=== PATIENT | female | born 1955 | race Caucasian/White ===

== ENCOUNTER → 2016-07-16 | Outpatient (CLI) | payer BC | END | disposition home or self-care (01) | LOC: RAD.S 08:37 | DX: C34.01 Malignant neoplasm of right main bronchus (principal); J98.11 Atelectasis; J98.6 Disorders of diaphragm; Z98.890 Other specified postprocedural states ==

== ENCOUNTER → 2016-08-06 | Outpatient (CLI) | payer BC | END | disposition home or self-care (01) | LOC: RAD.S 08:53 | DX: C34.01 Malignant neoplasm of right main bronchus (principal); C55 Malignant neoplasm of uterus, part unspecified; I10 Essential (primary) hypertension ==

== ENCOUNTER → 2016-08-27 | Outpatient (CLI) | payer BC | END | disposition home or self-care (01) | DX: C55 Malignant neoplasm of uterus, part unspecified (principal); C34.01 Malignant neoplasm of right main bronchus; I10 Essential (primary) hypertension; R91.8 Other nonspecific abnormal finding of lung field ==

== ENCOUNTER → 2016-09-17 | Outpatient (CLI) | payer BC | END | disposition home or self-care (01) | LOC: RAD.S 16:00 | DX: C55 Malignant neoplasm of uterus, part unspecified (principal); C34.01 Malignant neoplasm of right main bronchus; I10 Essential (primary) hypertension; R91.8 Other nonspecific abnormal finding of lung field ==